=== PATIENT | male | born 1970 | race Caucasian/White ===

== ENCOUNTER → 2021-03-24 13:00 | Outpatient (CLI) | payer OTHER, SELFPAY ==
[2021-03-24 21:27] LABS: COVID19 - ORCAS (NP or Nasal) Negative (Negative)
== END ==
PROVIDERS: PCP Family Medicine; Visit Provider Physician Assistant Medical
DX: Z20.822 Contact with and (suspected) exposure to COVID-19 (principal)
CPT/HCPCS: U0003

== ENCOUNTER → 2021-05-07 11:42 | Outpatient (CLI) | payer OTHER, SELFPAY ==
[2021-05-07 20:22] LABS: COVID19 - ORCAS (NP or Nasal) Negative (Negative)
--- NOTE | 2021-05-08 10:35 | PC.NURSE ---
pt presented to ED for results of Covid 19 test for travel but unable to get results from [place] where test was done. ID verified. Printed and given to patient.
== END ==
PROVIDERS: PCP Family Medicine; Visit Provider Family Medicine
DX: Z20.822 Contact with and (suspected) exposure to COVID-19 (principal)
CPT/HCPCS: U0003